=== PATIENT | male | born 1945 | race African-American/Black ===

== ENCOUNTER 2016-09-14 02:58 | Emergency (ER) | payer MEDICARE, OTHER ==
[~2016-09-14] VITALS: Ht 188 cm; Wt 72.6 kg
[~2016-09-14 02:58] MED LIST: AUGMENTIN 875 M1 TAB PO; CEPHALEXIN500 M2 PO; DOLOPHINE10 MG PO; NITROGLYCE0.4 MG/Act SL; NORCO 5/325 MG1 TAB PO; PENICILLIN250 MG PO
[2016-09-14 03:01] VITALS: BP 148/75
--- NOTE | 2016-09-14 03:14 | NUR ---
PATIENT TO ER BED 5
--- NOTE | 2016-09-14 03:18 | NUR ---
71 Y/O M HERE W/C/O R SHOULDER PAIN R/T ABCESS THAT WAS NOTICIED X 1 WK AGO AFTER BEING DISCHARGE FROM A HOSPITAL IN [place], [place]. PER PT HE HAS EXPERIENCED FEVER AND CHILLS X 1 WK. NO S/S OF DISTRESS NOTED AT THE MOMENT, ER AWARED.
[2016-09-14] MEDS ORDERED: LIDOCAINE 1% 500 MG/50 ML VIAL INJ ONE (03:50)
--- NOTE | 2016-09-14 03:54 | NUR ---
ROMERO VACA AT BED SIDE DRAINING ABCESS.
[2016-09-14 04:12] VITALS: BP 139/84
--- NOTE | 2016-09-14 04:12 | NUR ---
Patient discharged with v/s stable. Written and verbal after care instructions given and explained. Patient alert, oriented and verbalized understanding of instructions. Ambulatory with steady gait. All questions addressed prior to discharge. ID band removed. Patient advised to follow up TO THIS ER IN 2 DAYS. Rx of BACTRIM given. Patient educated on indication of medication including possible reaction and side effects. Opportunity to ask questions provided and answered.
== END 2016-09-14 04:12 | disposition home or self-care (01) ==
LOC: MED 02:58
DX: L02.413 Cutaneous abscess of right upper limb (principal); I10 Essential (primary) hypertension; I25.2 Old myocardial infarction; Z86.19 Personal history of other infectious and parasitic diseases
CPT/HCPCS: 10060; 73030; 99284; J2001; Q0092